=== PATIENT | female | born 1985 | race Caucasian/White ===

== ENCOUNTER 2019-07-31 13:12 | Emergency (ER) | payer OTHER ==
[~2019-07-31] VITALS: Ht 160 cm; Wt 52.2 kg
[2019-07-31] MEDS ORDERED: PRENA1 TRUE CO1 EACH PO (14:05)
== END 2019-07-31 18:03 | disposition home or self-care (01) ==
LOC: ER 13:12
DX: O98.512 Other viral diseases complicating pregnancy, second trimester (principal)